=== PATIENT | male | born 1950 | race American Indian/Alaskan Native ===

== ENCOUNTER 2021-09-26 07:20 | Day surgery (SDC) | payer MEDICARE ==
[2021-09-26] MEDS ORDERED: SODIUM CHLORIDE 0.9% 500 ML 500 ML IV SCH (09:00)
[2021-09-26 09:19] LABS: Basophils # (Auto) 0.1 K/mm3 (0.0-0.1); Basophils % (Auto) 0.5 % (0.0-1.8); Eosinophils % (Auto) 0.2 % (0.0-4.3); Hematocrit 41.1 % (35.5-45.6); Hemoglobin 13.3 gm/dl (11.8-15.2); Lymphocytes # (Auto) 1.3 K/mm3 (1.2-5.4); Lymphocytes % (Auto) 12.7 % (13.4-35.0); Mean Corpuscular HGB Conc 32 % (32-34); Mean Corpuscular Volume 83 fl (84-94); Monocytes % (Auto) 9.7 % (0.0-7.3); Platelet Count 287 K/mm3 (140-440); Red Blood Count 4.93 M/mm3 (3.65-5.03); Red Cell Distribution Width 15.1 % (13.2-15.2)
[2021-09-26 09:29] LABS: INR 1.03 (0.87-1.13)
[2021-09-26 09:33] LABS: Calcium 8.8 mg/dL (8.4-10.2)
--- NOTE | 2021-09-26 10:26 | Electrocardiograph Report ---
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
[2021-09-26] MEDS ORDERED: HYDROCORTISONE SOD SUCC 100 MG/2 ML VIAL IV NR (10:30)
[2021-09-26] MEDS ORDERED: diphenhydrAMINE 50 MG/ML VIAL IV NR (10:30)
[2021-09-26] MEDS ORDERED: HEPARIN/NS 5000 UNIT/500ML 1,000 ML IR ONE (11:36)
[2021-09-26] MEDS ORDERED: NITROGLYCERIN SYRINGE 3 ML ONE (11:37)
[2021-09-26] MEDS: LIDOCAINE (2%) 20 MG/1 ML VIAL 20 ML MDV INFILTRATI ONE ×2 (12:05→12:30)
[2021-09-26] MEDS: MIDAZOLAM 2 MG/2 ML INJ ONE ×2 (12:10→12:30)
[2021-09-26] MEDS: fentaNYL 100 MCG/2 ML INJ ONE ×2 (12:10→12:30)
[2021-09-26] MEDS: VERAPAMIL 5 MG/2 ML INJ ONE ×2 (12:11→12:32)
[2021-09-26] MEDS: HEPARIN 10,000 UNITS/10 ML VIAL ONE ×2 (12:11→12:32)
[2021-09-26] MEDS ORDERED: NITROGLYCERIN 600 MCG/3 ML SYRINGE UD ONE ×2 (12:11→12:32)
[2021-09-26] MEDS ORDERED: diphenhydrAMINE 50 MG/ML VIAL ONE (12:30)
[2021-09-26] MEDS ORDERED: diphenhydrAMINE 50 MG/ML VIAL IV ONE (12:31)
[2021-09-26] MEDS ORDERED: traMADol 50 MG TAB PO PRN (13:00)
[2021-09-26] MEDS ORDERED: SODIUM CHLORIDE 0.9% 1000 ML 1,000 ML IV SCH (13:00)
--- NOTE | 2021-09-26 13:01 | Cardiac Catherization Report ---
DATE OF SERVICE: 09/26/2021 REASON FOR PROCEDURE: Chest pain and abnormal thallium. PROCEDURES: 1. Left heart catheterization. 2. Selective left and right coronary angiography. 3. Left ventricular angiography. 4. Sedation time start 12:30, end 12:40. DESCRIPTION OF PROCEDURE: The patient was prepped and draped in a sterile fashion after informed consent. Additional discussion was had with the patient and his regarding his higher than normal risk of contrast nephropathy. His baseline creatinine was elevated at 1.5. He has fully understands the risks and consents to proceed. The right radial cath site was prepped and draped after a negative Irvin's test. Right radial artery was entered using Seldinger technique followed by placement of a 6-Maori hydrophilic sheath. Routine radial cocktail was administered via the sheath. Selective left and right coronary angiography was performed using #3.5 left Gio and #4 right Gio. The right Gio was used for left ventricular angiography via hand injection. The catheters were then removed, sheath removed and hemostasis achieved using a TR band. The patient was returned to the postprocedure unit in stable condition. There were no complications. FINDINGS: HEMODYNAMICS: Left ventricular end-diastolic pressure was 23, following coronary angiography. Ascending aortic pressure was 126/64. There was no significant pressure gradient on pullback across the aortic valve. CORONARY ANGIOGRAPHY: Left main coronary artery was angiographically normal. There was mild ostial narrowing of the LAD, followed by diffuse mild atherosclerosis of the proximal LAD. Otherwise, no significant obstructive lesions were noted in the LAD or diagonal branches. The circumflex artery also contained diffuse mild atherosclerosis of its mid to distal segments. There was an up to 20-30% luminal stenosis of the circumflex in its mid to distal segment. The right coronary artery was dominant. This vessel contained diffuse mild atherosclerosis of its proximal to mid segment. Left ventricular systolic function was at lower limits of normal, left ventricular ejection fraction 50-55%. The total contrast used for the procedure was 45 mL of Visipaque. CONCLUSION: 1. Diffuse mild atherosclerosis as described above. No significant obstructive coronary lesions. 2. Left ventricular systolic function at the lower limits of normal, ejection fraction 50-55%. RECOMMENDATIONS: Risk factor modification and medical therapy. TID: [id number] RECEIPT: [id number] CA/JOON
--- NOTE | 2021-09-26 13:01 | Discharge Summary ---
Short Stay Discharge Plan Activity: advance as tolerated Weight Bearing Status: Full Weight Bearing Diet: low fat, low cholesterol, low salt, diabetic Wound: keep clean and dry Special Instructions: no heavy lifting Follow up with: MICHAEL GOINS JR, MD [Primary Care Provider] - 7 Days ANA TEAGUE MD [Staff Physician] - 7 Days
[2021-09-26 15:38] VITALS: BP 126/56
== END 2021-09-26 16:05 | disposition home or self-care (01) ==
LOC: CATHLABREC 07:20
PROVIDERS: ATTEND Internal Medicine Cardiovascular Disease
DX: R94.30 Abnormal result of cardiovascular function study, unspecified (principal); I10 Essential (primary) hypertension; E11.9 Type 2 diabetes mellitus without complications; E78.5 Hyperlipidemia, unspecified; M19.90 Unspecified osteoarthritis, unspecified site; F17.210 Nicotine dependence, cigarettes, uncomplicated; Z79.82 Long term (current) use of aspirin; Z79.4 Long term (current) use of insulin; Z79.899 Other long term (current) drug therapy; Z98.890 Other specified postprocedural states; Z91.013 Allergy to seafood; Z88.8 Allergy status to other drugs, medicaments and biological substances
CPT/HCPCS: 36415; 80048; 85025; 85610; 85730; 93005; 93458; 99156; C1894; J1200; J1644; J1720; J1815; J2250; J3010; J3490; J7040; Q9967